=== PATIENT | female | born 1960 | race Caucasian/White ===

== ENCOUNTER 2019-06-19 19:58 | Emergency (ER) | payer OTHER ==
[~2019-06-19] VITALS: Ht 167.6 cm; Wt 54.0 kg
[2019-06-19] MEDS ORDERED: LEVO137T2 PO (20:26)
[2019-06-19] MEDS ORDERED: OXYC5TAB2 PO (20:26)
[2019-06-19] MEDS ORDERED: OMEP20TA62 PO (20:26)
--- NOTE | 2019-06-19 20:30 | NUR ---
PT BIB EMS FOR COUGH FOR COUPLE WEEKS WITH CONGESTION. PT DENIES FEVER. DENIES SOB. DENIES N/V. PT VSS. BREATHING TREATMENT IN ROUTE. HX OF LUPUS. AFEBRILE. PT GIVEN BSC
--- NOTE | 2019-06-19 21:14 | NUR ---
Pt alert and resting on gurney. Pt reports MD will order her a breathing tx.
[2019-06-19] MEDS ORDERED: ALBUTEROL/IPRATROPIUM 2.5MG/0.5MG, 3 ML ONE (21:29)
[2019-06-19] MEDS ORDERED: ALBUTEROL/IPRATROPIUM 2.5MG/0.5MG, 3 ML NPPB ONE (21:30)
--- NOTE | 2019-06-19 21:40 | NUR ---
back at bedside.
[2019-06-19 22:15] VITALS: BP 150/78
== END 2019-06-19 22:20 | disposition home or self-care (01) ==
LOC: ED 21:45
DX: J98.01 Acute bronchospasm (principal); J45.909 Unspecified asthma, uncomplicated
CPT/HCPCS: 71045; 93005; 94640; 99283; J7512

== ENCOUNTER → 2020-05-09 | Outpatient (CLI) | payer OTHER ==
[~2020-05-09] MED LIST: LEVO137T2 PO; OMEP20TA62 PO; OXYC5TAB2 PO
== END | disposition home or self-care (01) ==
LOC: CFH 08:18
PROVIDERS: ATTEND Family Medicine
DX: N64.4 Mastodynia (principal); L93.0 Discoid lupus erythematosus
CPT/HCPCS: 76642; 77062; 77066; G0279

== ENCOUNTER 2020-06-27 11:28 | Emergency (ER) | payer BC, OTHER ==
[~2020-06-27] VITALS: Ht 167.6 cm; Wt 54.0 kg
[2020-06-27 12:38] LABS: MICROSCOPIC INDICATED
--- NOTE | 2020-06-27 13:13 | NUR ---
PT TO RM FROM LOBBY
--- NOTE | 2020-06-27 13:21 | NUR ---
PT HAS CO LOWER ABDOMINAL PAIN WITH N/V, AND TO bilateral flanks. DENIES PAINFUL URINATION. SYMPTOMS FOR 3 MONTHS, RECENT LOSS IN FAMILY was scheduled for colonoscopy today for reEval (hx of polyps) but could complete bowel prep as too nauseated
--- NOTE | 2020-06-27 13:31 | NUR ---
REPORT FROM MEDARDO RIVERO
[2020-06-27] MEDS ORDERED: DULO60CA7 PO (13:33)
[2020-06-27 14:03] LABS: BASOPHILS % (AUTO) 2 % (0-1); EOSINOPHILS % (AUTO) 4 % (1-7); LYMPHOCYTES % (AUTO) 19 % (22-44); MEAN CORPUSCULAR HEMOGLOBIN 28.6 pg (27.0-34.8); MEAN PLATELET VOLUME 7.7 fL (7.4-10.4); MONOCYTES % (AUTO) 8 % (2-9); NEUTROPHILS % (AUTO) 68 % (42-75); PLATELET COUNT 401 x10^3/uL (130-400); RED BLOOD COUNT 4.49 x10^6/uL (3.82-5.3); RED CELL DISTRIBUTION WIDTH 15.4 % (9.6-15.2)
[2020-06-27 14:05] VITALS: BP 118/99
[2020-06-27 14:05] LABS: MD NO
--- NOTE | 2020-06-27 14:05 | NUR ---
Assumed care of patient. no acute distress noted. family at bedside. vs stable. call light in place. will continue to monitor.
[2020-06-27 14:09] LABS: ALANINE AMINOTRANSFERASE 19 U/L (12-78); ALBUMIN 3.7 g/dL (3.4-5.0); ANION GAP 3 mmol/L (5-15); CALCIUM 8.8 mg/dL (8.5-10.1); CHLORIDE 107 mmol/L (98-107)
[2020-06-27 14:11] LABS: ALKALINE PHOSPHATASE 103 U/L (45-117); BILIRUBIN,TOTAL 0.5 mg/dL (0.2-1.0); TOTAL PROTEIN 7.2 g/dL (6.4-8.2)
--- NOTE | 2020-06-27 14:56 | NUR ---
rn in room to assess, room empty, no belongings or pt noted, no one saw pt leave, pt up for dc. dc'd from tracker.
== END 2020-06-27 14:58 | disposition home or self-care (01) ==
LOC: ED 14:45
DX: R10.84 Generalized abdominal pain (principal); R11.2 Nausea with vomiting, unspecified; J45.909 Unspecified asthma, uncomplicated
CPT/HCPCS: 36415; 74176; 80053; 81001; 83690; 85025; 99284